=== PATIENT | male | born 1950 | race Caucasian/White ===

== ENCOUNTER → 2016-11-06 | Outpatient (CLI) | payer OTHER ==
--- NOTE | ~2016-11-06 | US136 ---
[facility] A Service of [facility] & [facility] RADIOLOGY TEXT RESULTS PATIENT: ENRIQUE VILLEGAS LOCATION: CNIV : 54 UNIT #: [id number] AGE: [address]: RUTHIE BUSTILLOS APRN SEX: M ORDER DR: [id number] [facility] [address] [place], [place] [address] [id number] O MR#: [id number] Acc #: [id number] NAME: ENRIQUE VILLEGAS : 1950 SEX: M STUDY DATE/TIME: 11/06/2016 10:33 UNIT: CNIV ROOM: STUDY DESCRIPTION: U/L [facility] Art Study [facility] Bil Attending Physician: Ruthie Bustillos A.P.R.N. Referring Physician: Ruthie Bustillos A.P.R.N. Ordering Physician: Ruthie Bustillos A.P.R.N. Primary Care Physician: Ruthie Bustillos A.P.R.N. MEDICAL IMAGING REPORT This report is preliminary unless electronic signature is present EXAM Ankle-brachial indices INDICATION 66-year-old male with diabetes, hypertension, numbness and tingling in the feet. FINDINGS The brachial pressure is 133. The right ankle pressure is 144 and the left ankle pressure is 145. The right VINEET is 1.8 and the left VINETE is 1.09. The toe-brachial index on the right is 0.92 and 0.78 on the left. IMPRESSION 1. Normal ankle-brachial indices. 2. Slightly decreased toe-brachial index on the left which may indicate small vessel disease in the left foot. Dictated by... Marcel Simmons M.D. THIS IS AN ELECTRONICALLY VERIFIED REPORT Marcel Simmons M.D. at 11/08/2016 4:31 PM Jayy TD: 11/08/2016 15:23 JOB #: [id number] MEDICAL IMAGING REPORT COPY
== END | disposition home or self-care (01) ==
LOC: CNIV 10:10
DX: G60.9 Hereditary and idiopathic neuropathy, unspecified (principal)
CPT/HCPCS: 93922